=== PATIENT | male | born 1955 | race African-American/Black ===

== ENCOUNTER 2019-11-20 20:20 | Emergency (ER) | payer OTHER ==
--- NOTE | 2019-11-20 22:13 | ER Document Report ---
ED Medical Screen (RME) - General Chief Complaint: Medication Refill Stated Complaint: MEDICATION REFILL Time Seen by Provider: 11/20/19 22:08 Mode of Arrival: Ambulatory Information source: Patient Notes: 64-year-old male with history of high blood pressure and diabetes presents emergency department with request for medication refill. Reports he has been out of his amlodipine and his metformin for couple months. Reports he started feeling lightheaded and decided he needed to get the medications filled. Denies chest pain. Denies shortness of breath. Denies fever vomiting diarrhea. Patient lives in [place] but is doing work at [email or web address]. I have greeted and performed a rapid initial assessment of this patient. A comprehensive ED assessment and evaluation of the patient, analysis of test results and completion of the medical decision making process will be conducted by additional ED providers. - Related Data Allergies/Adverse Reactions: lisinopril Allergy (Verified 11/20/19 22:03) Penicillins Allergy (Verified 11/20/19 22:03) Physical Exam - Vital signs Vitals: Temp Pulse Resp BP Pulse Ox 98.1 F 93 20 190/87 H 98 11/20/19 20:35 11/20/19 20:35 11/20/19 20:35 11/20/19 20:35 11/20/19 20:35 Course - Vital Signs Vital signs: Temp Pulse Resp BP Pulse Ox 98.1 F 93 20 190/87 H 98 11/20/19 20:35 11/20/19 20:35 11/20/19 20:35 11/20/19 20:35 11/20/19 20:35
--- NOTE | 2019-11-20 23:06 | EKG REPORT ---
SEVERITY:- NORMAL ECG - SINUS RHYTHM : Confirmed by: Vinicius Ordonez MD 20-Nov-2019 23:05:06
[2019-11-20 23:35] LABS: ABSOLUTE BASOPHILS # (AUTO) 0.1 10^3/uL (0.0-0.2); ABSOLUTE EOSINOPHILS # (AUTO) 0.2 10^3/uL (0.0-0.6); ABSOLUTE LYMPHOCYTES (AUTO) 3.1 10^3/uL (0.5-4.7); ABSOLUTE MONOCYTES (AUTO) 0.9 10^3/uL (0.1-1.4); ABSOLUTE NEUT (AUTO) 6.2 10^3/uL (1.7-8.2); BASOPHILS % (AUTO) 1.1 % (0-2); EOSINOPHILS % (AUTO) 1.6 % (0-6); HEMATOCRIT 43.7 % (37.9-51.0); HEMOGLOBIN 14.6 g/dL (13.5-17.0); LYMPHOCYTES % (AUTO) 29.5 % (13-45); MEAN CORPUSCULAR HEMOGLOBIN 30.7 pg (27.0-33.4); MEAN CORPUSCULAR HGB CONC 33.4 g/dL (32.0-36.0); MEAN CORPUSCULAR VOLUME 92 fl (80-97); MONOCYTES % (AUTO) 8.7 % (3-13); PLATELET COUNT 351 10^3/uL (150-450); RED BLOOD COUNT 4.77 10^6/uL (4.35-5.55); RED CELL DISTRIBUTION WIDTH 13.9 % (11.5-14.0); SEGMENTED NEUTROPHILS % (AUTO) 59.1 % (42-78); TOTAL CELLS COUNTED % (AUTO) 100 %; WHITE BLOOD COUNT 10.5 10^3/uL (4.0-10.5)
[2019-11-21] LABS: ALKALINE PHOSPHATASE 116 U/L (38-126); ANION GAP 9 (5-19); ASPARTATE AMINO TRANSFERASE 21 U/L (17-59); BILIRUBIN,DIRECT 0.2 mg/dL (0.0-0.4); BILIRUBIN,TOTAL 0.4 mg/dL (0.2-1.3); BLOOD UREA NITROGEN 15 mg/dL (7-20); CALCIUM 9.5 mg/dL (8.4-10.2); CARBON DIOXIDE 28 mmol/L (22-30); CHLORIDE 99 mmol/L (98-107); GLUCOSE 212 mg/dL (75-110); POTASSIUM 4.4 mmol/L (3.6-5.0); TOTAL PROTEIN 7.6 g/dL (6.3-8.2)
[2019-11-21] MEDS ORDERED: AMLODIPINE BESYLATE 10 MG TABLET PO ONE (00:59)
[2019-11-21] MEDS ORDERED: METFORMIN HCL 500 MG TABLET PO ONE (00:59)
--- NOTE | 2019-11-21 01:05 | ER Document Report ---
ED General - General Chief Complaint: Headache Stated Complaint: MEDICATION REFILL Time Seen by Provider: 11/20/19 22:08 Mode of Arrival: Ambulatory Notes: Patient is a 64-year-old male who presents to the emergency department for medication refill. Patient also felt lightheaded earlier today. Patient has been out of his metformin and amlodipine/Benzapril the past few months. Patient is visiting from [place] and has not seen a primary care doctor. Patient has a history of diabetes and hypertension. Denies any blurry vision, diplopia, urinary symptoms, or any other symptoms. Denies any chest pain. - Related Data Allergies/Adverse Reactions: lisinopril Allergy (Verified 11/20/19 22:03) Penicillins Allergy (Verified 11/20/19 22:03) Home Medications: Metformin. AMlodipine Past Medical History - General Information source: Patient - Social History Smoking Status: Never Smoker Chew tobacco use (# tins/day): No Drug Abuse: None Family History: Reviewed & Not Pertinent Patient has suicidal ideation: No Patient has homicidal ideation: No Review of Systems - Review of Systems Notes: REVIEW OF SYSTEMS: CONSTITUTIONAL : Denies recent illness. Denies recent unintentional weight loss. Denies fever, chills, or sweats. EENT: Denies eye, ear, throat, or mouth pain, discharge, or symptoms. Denies nasal or sinus congestion. CARDIOVASCULAR: Denies chest pain. RESPIRATORY: Denies shortness of breath, cough, congestion, difficulty breathing, or wheezing. GASTROINTESTINAL: Denies nausea, vomiting, and diarrhea. Denies abdominal pain. Denies constipation. GENITOURINARY: Denies difficulty urinating, burning, blood in urine, urgency or frequency. MUSCULOSKELETAL: Denies neck and back pain. Denies joint pain or swelling. SKIN: Denies rash, itchiness, or lesions HEMATOLOGIC : Denies easy bruising or bleeding. LYMPHATIC: Denies swollen, painful, enlarged glands. NEUROLOGICAL: Denies no numbness or tingling denies weakness. Denies altered mental status. Denies alteration in speech. See HPI. PSYCHIATRIC: Denies stress, anxiety, alteration in sleep patterns, or depression. All other systems reviewed and negative. Physical Exam - Vital signs Vitals: Temp Pulse Resp BP Pulse Ox 98.1 F 93 20 190/87 H 98 11/20/19 20:35 11/20/19 20:35 11/20/19 20:35 11/20/19 20:35 11/20/19 20:35 - Notes Notes: PHYSICAL EXAMINATION: GENERAL: Appears obese, no acute distress. HEAD: Normocephalic, atraumatic. EYES: PERRL, conjunctiva normal, all extraocular movements intact, sclera nonicteric ENT: Moist mucous membranes. NECK: Supple, no noticeable swelling, redness, rash. Normal range of motion. LUNGS: Equal breath sounds bilaterally and clear to auscultation. No wheezes rales or rhonchi. CARDIOVASCULAR: S1-S2, regular rate, regular rhythm. Radial pulses 2+, normal. ABDOMEN: Normoactive bowel sounds. Soft, nontender, no guarding, no rebound tenderness, and no masses palpated. EXTREMITIES: Normal strength and range of motion, no pitting or edema. No cyanosis. NEUROLOGICAL: Moves all extremities upon command. Strength 5/5 in all extremities. PSYCH: Normal mood, normal affect. SKIN: Warm, dry. No rash, lesions, ulcerations noted. Normal skin turgor. Course - Re-evaluation Re-evalutation: 11/21/19 His blood pressure came down here in the emergency department without the aid of medications. His blood pressure is now 179/94. He will be restarted on his medications. Advised him to follow-up with a primary care provider. Told him to call his insurance company and find out who is in network, as [place] and will be here for the next 6 months. Patient asked me to refill his medication for the next 6 months, but I stated that it was inappropriate for me to refill his medications without proper follow-up. He will receive a 30-day supply and he will follow-up with a PCM. I have very low suspicion for any life-threatening etiology at this time. No neurological deficits noted. Chemistries are unremarkable, other than a glucose of 212, which the patient has been off his metformin. Hematology is unremarkable. Follow-up precautions were given. Verbal discharge instructions were given to the patient. They verbalized understanding. They are stable for discharge. - Vital Signs Vital signs: Temp Pulse Resp BP Pulse Ox 98.0 F 77 19 179/94 H 97 11/21/19 01:42 11/21/19 01:42 11/21/19 01:42 11/21/19 01:42 11/21/19 01:42 - Laboratory Result Diagrams: 11/20/19 23:51 11/20/19 23:51 Laboratory results interpreted by me: 11/20/19 23:51 Sodium 136.1 L Glucose 212 H Discharge - Discharge Clinical Impression: Essential hypertension Diabetes mellitus Qualifiers: Diabetes mellitus type: type 2 Diabetes mellitus penitentiary insulin use: without penitentiary use Diabetes mellitus complication status: with other specified complication Qualified Code(s): E11.69 - Type 2 diabetes mellitus with other specified complication Condition: Stable Disposition: HOME, SELF-CARE Additional Instructions: You were seen today in the emergency department for a medication refill. Your labs show that your blood sugar was high. Please take your medications as prescribed. Please call your insurance company and find out which primary care provider is not within network. Please call them and make an appointment. Prescriptions: Amlodipine Besylate/Benazepril [Amlodipine-Benazepril 10-20 mg] 1 cap PO DAILY #30 cap Metformin HCl [Glucophage 500 mg Tablet] 500 mg PO BID #60 tablet
[2019-11-21 01:42] VITALS: BP 179/94
== END 2019-11-21 01:42 | disposition home or self-care (01) ==
LOC: ER 20:20
DX: E11.69 Type 2 diabetes mellitus with other specified complication (principal); I10 Essential (primary) hypertension; R51 Headache; R42 Dizziness and giddiness; Z88.0 Allergy status to penicillin; Z79.84 Long term (current) use of oral hypoglycemic drugs
CPT/HCPCS: 36415; 80053; 84484; 85025; 93005; 93010; 99282